=== PATIENT | female | born 1995 | race Caucasian/White ===

== ENCOUNTER 2025-05-26 08:49 | Outpatient (CLI) | payer OTHER, SELFPAY ==
--- NOTE | ~2025-05-26 | US_ITS ---
EXAMINATION: US breast BI limited INDICATION: 29-year old female; who is currently 25 weeks presents with firmness in the medial breast bilaterally left greater than right. COMPARISON: None TECHNIQUE: Targeted sonographic evaluation of the area of breast firmness medial aspect of both breast was completed. FINDINGS: In the right breast at 3:00, corresponding to the area of palpable firmness there is focal skin thickening that measure up to 0.4 cm in thickness and demonstrate increased blood flow. In the left breast at 9:00, corresponding to the area of palpable firmness, there is a focal skin thickening that measure up to 0.9 cm in thickness and demonstrates increased blood flow. No drainable fluid collection in either breast. IMPRESSION: Probably benign BILATERAL breast focal skin thickening that correlates to area of palpable firmness. This findings may be related to an inflammatory process such as cellulitis. No suspicious sonographic finding within the breast tissue in either breast in the area of palpable firmness. No drainable fluid collection. RECOMMENDATION: Clinical management of palpable finding. Short-term follow-up in 4 weeks. BI-RADS 3, PROBABLY BENIGN Reviewed, dictated and finalized at location [facility] IMPRESSION: Probably benign BILATERAL breast focal skin thickening that correlates to area of palpable firmness. This findings may be related to an inflammatory process s uch as cellulitis. No suspicious sonographic finding within the breast tissue i n either breast in the area of palpable firmness. No drainable fluid collection . RECOMMENDATION: Clinical management of palpable finding. Short-term follow-up in 4 weeks. BI-RADS 3, PROBABLY BENIGN
== END 2025-05-26 08:50 | disposition home or self-care (01) ==
LOC: MICIMG 08:49
PROVIDERS: PCP Nurse Practitioner; Visit Provider Nurse Practitioner
DX: N63.0 Unspecified lump in unspecified breast (principal); R92.8 Other abnormal and inconclusive findings on diagnostic imaging of breast
CPT/HCPCS: 76642